=== PATIENT | male | born 1970 | race Caucasian/White ===

== ENCOUNTER 2019-07-12 | Emergency (ER) | payer OTHER ==
[2019-07-12] MEDS ORDERED: TRAMADOL HYDROC50 MG PO (18:25)
[2019-07-12] MEDS ORDERED: GENTAMICIN SULF5 ML OD (18:51)
== END 2019-07-12 19:00 | disposition home or self-care (01) | DRG 125 ==
DX: S05.01XA Injury of conjunctiva and corneal abrasion without foreign body, right eye, initial encounter (principal); F17.220 Nicotine dependence, chewing tobacco, uncomplicated; X58.XXXA Exposure to other specified factors, initial encounter; Y93.89 Activity, other specified; Y92.009 Unspecified place in unspecified non-institutional (private) residence as the place of occurrence of the external cause